=== PATIENT | male | born 1950 | race Two or more races ===

== ENCOUNTER 2017-12-28 11:45 | Emergency (ER) | payer OTHER ==
[~2017-12-28] VITALS: Ht 175.3 cm; Wt 73.5 kg
[~2017-12-28 11:45] MED LIST: ALTACE5 MG PO; AVAPRO150 MG PO; CLOPIDOGREL BIS75 MG PO; FLOMAX; GLUCOPHAGE XR500 MG PO; PROVENTIL17 G1 IH; TENORMIN25 MG PO
== END 2017-12-28 15:35 | disposition home or self-care (01) ==
LOC: ER 11:45
DX: R42 Dizziness and giddiness (principal)

== ENCOUNTER 2018-02-14 08:25 | Outpatient (CLI) | payer OTHER | END 2018-02-14 08:26 | disposition home or self-care (01) | LOC: RAD 08:25 | DX: S40.911A Unspecified superficial injury of right shoulder, initial encounter (principal) ==

== ENCOUNTER 2018-02-14 09:02 | Outpatient (CLI) | payer OTHER | END 2018-02-14 09:11 | disposition home or self-care (01) | LOC: NUCLEAR 09:02 | DX: G45.8 Other transient cerebral ischemic attacks and related syndromes (principal) ==

== ENCOUNTER 2018-03-17 09:41 | Outpatient (CLI) | payer OTHER | END 2018-03-17 09:43 | disposition home or self-care (01) | LOC: SONOGRAMA 09:41 → MAMO-SONO 10:15 | DX: M25.511 Pain in right shoulder (principal); M75.101 Unspecified rotator cuff tear or rupture of right shoulder, not specified as traumatic ==

== ENCOUNTER 2018-06-23 07:25 | Outpatient (CLI) | payer OTHER | END 2018-06-23 07:34 | disposition home or self-care (01) | LOC: MRI 07:25 | DX: I72.8 Aneurysm of other specified arteries (principal); I65.1 Occlusion and stenosis of basilar artery; I65.09 Occlusion and stenosis of unspecified vertebral artery; I65.29 Occlusion and stenosis of unspecified carotid artery; Q28.2 Arteriovenous malformation of cerebral vessels | CPT/HCPCS: 70544 ==

== ENCOUNTER 2018-11-15 07:37 | Outpatient (CLI) | payer OTHER | END 2018-11-15 07:40 | disposition home or self-care (01) | LOC: SONOGRAMA 07:37 → MAMO-SONO 08:15 | DX: N18.3 Chronic kidney disease, stage 3 (moderate) (principal); E27.8 Other specified disorders of adrenal gland ==

== ENCOUNTER 2018-12-26 12:14 | Outpatient (CLI) | payer OTHER | END 2018-12-26 12:21 | disposition home or self-care (01) | LOC: RAD 12:14 | DX: I15.8 Other secondary hypertension (principal); I10 Essential (primary) hypertension ==

== ENCOUNTER 2019-11-01 15:35 | Emergency (ER) | payer OTHER ==
[~2019-11-01] VITALS: Ht 175.3 cm; Wt 73.0 kg
[2019-11-01] MEDS ORDERED: IBERSALTAN (16:05)
== END 2019-11-01 20:34 | disposition home or self-care (01) ==
LOC: ER 15:35
DX: R53.1 Weakness (principal); R42 Dizziness and giddiness; E87.5 Hyperkalemia; N18.9 Chronic kidney disease, unspecified

== ENCOUNTER 2020-01-09 11:22 | Emergency (ER) | payer OTHER ==
[~2020-01-09] VITALS: Ht 175.3 cm; Wt 77.1 kg
[~2020-01-09 11:22] MED LIST changes: +IBERSALTAN
[2020-01-09] MEDS ORDERED: TAMS0.4C (11:41)
[2020-01-09] MEDS ORDERED: PROSCAR5 MG (11:43)
[2020-01-09] MEDS ORDERED: LANTUS SOL100 UNIT/1 (11:44)
[2020-01-09] MEDS ORDERED: NEURONTIN300 MG (11:44)
== END 2020-01-09 16:21 | disposition home or self-care (01) ==
LOC: ER 11:22
DX: R10.12 Left upper quadrant pain (principal); R10.32 Left lower quadrant pain

== ENCOUNTER 2020-05-19 09:21 | Outpatient (CLI) | payer OTHER ==
[~2020-05-19 09:21] MED LIST changes: +LANTUS SOL100 UNIT/1; +NEURONTIN300 MG; +PROSCAR5 MG; +TAMS0.4C
== END 2020-05-19 09:24 | disposition home or self-care (01) ==
LOC: SONOGRAMA 09:21
PROVIDERS: ATTEND Pathology Anatomic Pathology & Clinical Pathology
DX: D34 Benign neoplasm of thyroid gland (principal); E04.8 Other specified nontoxic goiter

== ENCOUNTER 2020-09-26 09:02 | Outpatient (CLI) | payer OTHER | END 2020-09-26 09:05 | disposition home or self-care (01) | LOC: RX STUDY 09:02 | PROVIDERS: ATTEND Internal Medicine Gastroenterology | DX: K29.30 Chronic superficial gastritis without bleeding (principal); R10.13 Epigastric pain ==

== ENCOUNTER → 2020-10-21 09:39 | Outpatient (CLI) | payer OTHER | END | disposition home or self-care (01) | LOC: MRI 09:15 | PROVIDERS: ATTEND Physical Medicine & Rehabilitation | DX: M48.02 Spinal stenosis, cervical region (principal); M54.16 Radiculopathy, lumbar region | CPT/HCPCS: 72141; 72148 ==

== ENCOUNTER 2021-04-14 15:25 | Outpatient (CLI) | payer OTHER | END 2021-04-14 15:30 | disposition home or self-care (01) | LOC: PPH VACUNA 15:25 | PROVIDERS: ATTEND Emergency Medicine Pediatric Emergency Medicine | DX: Z23 Encounter for immunization (principal) ==

== ENCOUNTER 2021-09-10 06:35 | Outpatient (CLI) | payer OTHER | END 2021-09-10 07:00 | disposition home or self-care (01) | LOC: MRI 06:35 | PROVIDERS: ATTEND Neuromusculoskeletal Medicine & OMM | DX: G46.4 Cerebellar stroke syndrome (principal) | CPT/HCPCS: 70551 ==

== ENCOUNTER 2021-11-18 08:21 | Outpatient (CLI) | payer OTHER | END 2021-11-18 08:26 | disposition home or self-care (01) | LOC: TOM 08:21 | PROVIDERS: ATTEND Specialist | DX: C61 Malignant neoplasm of prostate (principal) ==

== ENCOUNTER → 2023-02-02 | Outpatient (CLI) | payer OTHER | END | disposition home or self-care (01) | LOC: MRI 02-01 10:34 | PROVIDERS: ATTEND Neuromusculoskeletal Medicine & OMM | DX: F03.90 Unspecified dementia, unspecified severity, without behavioral disturbance, psychotic disturbance, mood disturbance, and anxiety (principal); F09 Unspecified mental disorder due to known physiological condition | CPT/HCPCS: 70551 ==